=== PATIENT | female | born 1990 | race Caucasian/White ===

== ENCOUNTER 2024-05-13 12:11 | Day surgery (SDC) | payer MEDICAID ==
[~2024-05-13] VITALS: Ht 154.9 cm; Wt 41.5 kg
[~2024-05-13 12:11] MED LIST: LR 1,000 ML IV SCH
[2024-05-13] MEDS ORDERED: ADDERALL XR 10M10 MG PO (13:11)
[2024-05-13] MEDS ORDERED: ATIVAN 0.50.5 MG/TAB PO (13:12)
[2024-05-13] MEDS ORDERED: Rocuronium 50 MG/5 ML Multi-Dose VIAL ONE (13:24)
[2024-05-13] MEDS ORDERED: fentaNYL 50 MCG/ML 2 ML VIAL ONE ×2 (13:24→15:13)
[2024-05-13] MEDS ORDERED: Lidocaine PF 2% (20 MG/ML) 5 ML VIAL ONE (13:24)
[2024-05-13] MEDS ORDERED: Succinylcholine PF 200 MG/10 ML SYRINGE IV ONE (13:24)
[2024-05-13] MEDS ORDERED: NS 10 ML IV ONE (13:27)
[2024-05-13] MEDS ORDERED: Indocyanine Green 12.5 MG in Water For Injection,Sterile 2.5 ML IV ONE (13:30)
[2024-05-13 13:33] LABS: BASO # 0.1 K/mm3 (0.0-0.2); BASO % 0.8 % (0.0-2.0); EOS # 0.2 K/mm3 (0.0-0.7); EOS % 1.9 % (0.0-4.0); GRAN # 6.9 K/mm3 (1.4-6.5); GRAN % 73.4 % (42.2-75.2); HEMATOCRIT 41.4 % (37.0-47.0); HEMOGLOBIN 13.7 g/dl (12.5-16.0); LYMPH # 1.7 K/mm3 (1.2-3.4); LYMPH % 17.6 % (20.0-51.0); MEAN CELL VOLUME 86 fl (80.0-100.0); MEAN CORPUSCULAR HEMOGLOBIN 29 pg (27-31); MEAN CORPUSCULAR HGB CONC 33 g/dl (33.0-37.0); MEAN PLATELET VOLUME 9.9 fl (7.4-10.4); MONO # 0.6 K/mm3 (0.1-0.6); PLATELET COUNT 214 K/mm3 (130-400); REDCELL DISTRIBUTION WIDTH-CV 13.6 % (11.5-14.5)
[2024-05-13 13:37] VITALS: BP 102/67; PULSE 65; TEMP 98.2
[2024-05-13 13:47] LABS: ALBUMIN 4.3 g/dL (3.5-5.0); BILIRUBIN,TOTAL 0.4 mg/dL (0.2-1.2); CALCIUM 9.5 mg/dL (8.4-10.2); CREATININE, serum 0.73 mg/dL (0.57-1.11); POTASSIUM 3.9 mEq/L (3.5-4.5); TOTAL PROTEIN 7.1 g/dl (6.2-8.1)
[2024-05-13] MEDS ORDERED: MOTRIN 600600 MG/TAB PO (14:55)
[2024-05-13] MEDS ORDERED: PERCOCET 325 MG1 TA2 PO (14:56)
[2024-05-13] MEDS ORDERED: Ondansetron 4 MG/2 ML VIAL ONE (15:01)
[2024-05-13] MEDS ORDERED: dexAMETHasone 10 MG/ML VIAL ONE (15:01)
[2024-05-13] MEDS ORDERED: Topical Skin Adhesive 1 EACH (1 ML) TOP ONE (15:09)
[2024-05-13] MEDS ORDERED: Ketorolac 30 MG/ML VIAL ONE (15:14)
[2024-05-13] MEDS ORDERED: HYDROmorphone 1 MG/1 ML SYRINGE [PACU/SDC ONLY] IV PRN (15:30)
[2024-05-13] MEDS ORDERED: droPERidol 2.5 MG/ML 2 ML VIAL IV PRN (15:30)
[2024-05-13] MEDS ORDERED: fentaNYL 50 MCG/ML 1 ML SYRINGE/VIAL [PACU/SDC ONLY] IV PRN (15:30)
[2024-05-13] MEDS ORDERED: Ondansetron 4 MG/2 ML VIAL IV PRN (15:30)
[2024-05-13] MEDS ORDERED: Meperidine 50 MG/ML 1 ML VIAL IV PRN (15:30)
[2024-05-13 16:16] VITALS: TEMP 97.5
[2024-05-13 16:30] VITALS: BP 124/81; PULSE 52
[2024-05-13 16:45] VITALS: BP 110/83; PULSE 53
[2024-05-13 17:00] VITALS: BP 111/78; PULSE 56
--- NOTE | 2024-05-13 17:20 | NUR ---
1630-PT TO BAY 6 PER CART FROM PACU. REPORT RECEIVED. VS OBTAINED. CALL LIGHT WITHIN REACH. PT TOLERATING ICE CHIPS. 1645-PT TOLERATING APPLESAUCE AND SODA. DENIES ANY NEEDS. 1655-PT RESTING COMFORTABLY. 1705-IV DC'D AT THIS TIME. PT ABLE TO DRESS SELF WITHOUT ASSISTANCE. PT AMBULATED TO RESTROOM AND VOIDED WITHOUT DIFFICULTY. 1715-DISCHARGE EDUCATION COMPLETED WITH PT AND HER SO. VERBALIZED UNDERSTANDING OF HOME AND FOLLOW UP CARE. ALL QUESTIONS ANSWERED. DISCHARGE PAPERWORK GIVEN TO PT. 1720-PT OFF THE UNIT PER WHEELCHAIR. PT DISCHARGED TO HOME WITH FAMILY PER PERSONAL VEHICLE.
== END 2024-05-13 17:20 | disposition home or self-care (01) ==
LOC: SDCO 12:11
PROVIDERS: Surgery
DX: K81.1 Chronic cholecystitis (principal); K82.8 Other specified diseases of gallbladder; R63.4 Abnormal weight loss; F17.290 Nicotine dependence, other tobacco product, uncomplicated; Z87.11 Personal history of peptic ulcer disease
CPT/HCPCS: J0690; J1100; J1885; J2405; J2704; J3010; J7120

== ENCOUNTER 2024-07-05 11:51 | Emergency (ER) | payer MEDICAID ==
[~2024-07-05] VITALS: Ht 154.9 cm; Wt 39.5 kg
[~2024-07-05 11:51] MED LIST changes: +ADDERALL XR 10M10 MG PO; +ATIVAN 0.50.5 MG/TAB PO; -LR 1,000 ML IV SCH; +MOTRIN 600600 MG/TAB PO; +PERCOCET 325 MG1 TA2 PO
[2024-07-05 12:06] VITALS: TEMP 98.4
[2024-07-05] MEDS ORDERED: diphenhydrAMINE 50 MG/ML 1 ML VIAL IV ONE (14:15)
[2024-07-05] MEDS ORDERED: LR 1,000 ML IV ONE (14:15)
[2024-07-05 14:42] LABS: BASO # 0.1 K/mm3 (0.0-0.2); BASO % 0.8 % (0.0-2.0); EOS # 0.3 K/mm3 (0.0-0.7); EOS % 3.5 % (0.0-4.0); GRAN # 5.9 K/mm3 (1.4-6.5); GRAN % 65.7 % (42.2-75.2); HEMATOCRIT 35.8 % (37.0-47.0); HEMOGLOBIN 12.1 g/dl (12.5-16.0); LYMPH # 2.2 K/mm3 (1.2-3.4); LYMPH % 24.1 % (20.0-51.0); MEAN CELL VOLUME 86 fl (80.0-100.0); MEAN CORPUSCULAR HEMOGLOBIN 29 pg (27-31); MEAN CORPUSCULAR HGB CONC 34 g/dl (33.0-37.0); MEAN PLATELET VOLUME 9.8 fl (7.4-10.4); MONO # 0.5 K/mm3 (0.1-0.6); MONO % 5.6 % (1.7-9.3); PLATELET COUNT 217 K/mm3 (130-400); RED BLOOD COUNT 4.16 M/mm3 (4.10-5.30); REDCELL DISTRIBUTION WIDTH-CV 13.2 % (11.5-14.5)
[2024-07-05 15:05] LABS: ALANINE AMINOTRANSFERASE 39 U/L (0-55); ALBUMIN 3.7 g/dL (3.5-5.0); ALKALINE PHOSPHATASE 53 U/L (40-150); ANION GAP 8 mmol/L (7-16); AST,SGOT 28 U/L (5-34); BILIRUBIN,TOTAL 0.2 mg/dL (0.2-1.2); BLOOD UREA NITROGEN 10 mg/dL (7-19); CALCIUM 9.1 mg/dL (8.4-10.2); CHLORIDE 109 mEq/L (98-107); CREATININE, serum 0.68 mg/dL (0.57-1.11); GLUCOSE 87 mg/dL (70-99); LIPASE 39 U/L (8-78); SODIUM 139 mEq/L (136-145); TOTAL PROTEIN 6.4 g/dl (6.2-8.1)
[2024-07-05 15:06] LABS: SALICYLATE < 5.0 mg/dL (15.0-30.0)
[2024-07-05 15:34] LABS: COLLECTION METHOD CLEAN CATCH
[2024-07-05] MEDS ORDERED: KEPPRA750 MG PO (15:35)
[2024-07-05 15:40] LABS: URINE APPEARANCE CLOUDY (CLEAR/HAZY); URINE BLOOD NEGATIVE (NEGATIVE); URINE COLOR YELLOW (YELLOW); URINE GLUCOSE NEGATIVE (NEGATIVE); URINE KETONE NEGATIVE (NEGATIVE); URINE NITRATE NEGATIVE (NEGATIVE); URINE PROTEIN(semi-quant) NEGATIVE (NEGATIVE); URINE UROBILINOGEN 0.2 E.U/dL (0.2-1.0)
[2024-07-05] MEDS ORDERED: levETIRAcetam 500 MG TAB PO ONE (15:45)
[2024-07-05 15:56] VITALS: BP 114/75; PULSE 62
== END 2024-07-05 16:00 | disposition home or self-care (01) ==
LOC: COL.ER 11:51
PROVIDERS: Emergency Medicine
DX: G40.909 Epilepsy, unspecified, not intractable, without status epilepticus (principal); Z91.040 Latex allergy status
CPT/HCPCS: J1200; J2765; J7120